=== PATIENT | female | born 1990 ===

== ENCOUNTER 2022-06-04 01:25 | Emergency (ER) | payer SELFPAY ==
[~2022-06-04] VITALS: Ht 172.7 cm; Wt 68.0 kg
--- NOTE | 2022-06-04 01:39 | NUR ---
Patient is ambulatory with steady gait, NAD noted.
--- NOTE | 2022-06-04 01:40 | NUR ---
Patient refused to vital sign assessment
--- NOTE | 2022-06-04 03:48 | NUR ---
Patient discharged to home in stable condition. Written and verbal after care instructions given. Patient verbalizes understanding of instructions. Stressed follow up or return to ER for worsening s/s. Patient is a/ox4, NAD noted. Patient is able to walk with steady gait. Refused to sign discharge instructions. Jun RUSSELL co signed.
== END 2022-06-04 03:51 | disposition home or self-care (01) ==
LOC: ER 01:25
DX: R10.12 Left upper quadrant pain (principal); Z53.29 Procedure and treatment not carried out because of patient's decision for other reasons
CPT/HCPCS: A4663